=== PATIENT | female | born 1990 | race Caucasian/White ===

== ENCOUNTER 2016-12-26 22:34 | Emergency (ER) | payer OTHER, BC ==
[~2016-12-26] VITALS: Ht 160 cm; Wt 60.8 kg
[2016-12-26 23:40] VITALS: BP 104/69
== END 2016-12-26 23:41 | disposition home or self-care (01) ==
LOC: EXP 22:34 → EME 22:34 → EXP 23:41
PROC: 3E0234Z Introduction of Serum, Toxoid and Vaccine into Muscle, Percutaneous Approach (ICD-10-PCS; principal; 2016-12-26)
DX: Z20.3 Contact with and (suspected) exposure to rabies (principal); Z23 Encounter for immunization
CPT/HCPCS: 99281; 99283

== ENCOUNTER 2016-12-29 21:16 | Emergency (ER) | payer OTHER, BC ==
[~2016-12-29] VITALS: Ht 160 cm; Wt 61.1 kg
[2016-12-29 22:45] VITALS: BP 118/77
== END 2016-12-29 22:46 | disposition home or self-care (01) ==
LOC: EME 21:16
PROC: 3E0234Z Introduction of Serum, Toxoid and Vaccine into Muscle, Percutaneous Approach (ICD-10-PCS; principal; 2016-12-29)
DX: Z20.3 Contact with and (suspected) exposure to rabies (principal); Z23 Encounter for immunization
CPT/HCPCS: 99281; 99284